=== PATIENT | male | born 1945 | race Caucasian/White ===

== ENCOUNTER 2018-09-30 07:06 | Emergency (ER) | payer BC, OTHER ==
[~2018-09-30] VITALS: Ht 165.1 cm; Wt 92.5 kg
[2018-09-30 07:27] VITALS: BP_SYST 143
[2018-09-30 09:22] VITALS: BP_SYST 143
== END 2018-09-30 09:22 | disposition home or self-care (01) ==
LOC: SED 07:06
DX: T78.3XXA Angioneurotic edema, initial encounter (principal); F03.90 Unspecified dementia, unspecified severity, without behavioral disturbance, psychotic disturbance, mood disturbance, and anxiety; I10 Essential (primary) hypertension
CPT/HCPCS: 99281

== ENCOUNTER 2018-10-01 10:22 | Outpatient (CLI) | payer OTHER | END 2018-10-01 20:42 | disposition home or self-care (01) | LOC: SRD 10:22 | PROVIDERS: ATTEND Family Medicine | DX: I10 Essential (primary) hypertension (principal); I70.0 Atherosclerosis of aorta | CPT/HCPCS: 71046-TC ==

== ENCOUNTER 2019-02-05 08:05 | Outpatient (CLI) | payer OTHER | END 2019-02-05 20:53 | disposition home or self-care (01) | LOC: SUS 08:05 | PROVIDERS: ATTEND Family Medicine | DX: N28.1 Cyst of kidney, acquired (principal); N28.89 Other specified disorders of kidney and ureter | CPT/HCPCS: 76770 ==